=== PATIENT | male | born 1960 | race Caucasian/White ===

== ENCOUNTER 2016-12-19 20:05 | Emergency (ER) | payer SELFPAY ==
--- NOTE | 2016-12-19 20:15 | NUR ---
PATIENT LEFT WITHOUT BEING SEEN BY DR. NESBITT . NO FURTHER CARE PROVIDED FOR PATIENT.
== END 2016-12-19 20:15 | disposition left against medical advice (07) ==
LOC: MED 20:05
DX: R20.0 Anesthesia of skin (principal); Z53.21 Procedure and treatment not carried out due to patient leaving prior to being seen by health care provider